=== PATIENT | female | born 1960 | race American Indian/Alaskan Native ===

== ENCOUNTER 2016-11-25 09:36 | Outpatient (CLI) | payer OTHER ==
--- NOTE | 2016-11-25 12:48 | Mammography Report ---
BILATERAL DIGITAL SCREENING MAMMOGRAM with CAD: 11/25/16 09:36:00 CLINICAL: Routine screening. COMPARISON: 11/17/15 FINDINGS: The breasts are predominantly fatty with a few scattered bilateral fibroglandular densities.No mass, architectural distortion or suspicious calcifications. IMPRESSION: No mammographic evidence of malignancy. BI-RADS CATEGORY: 1 -- Negative RECOMMENDATION: Routine mammographic screening in one year. COMMENT: Patient follow-up letters are generated by our [employer] application.
== END 2016-11-25 09:37 | disposition home or self-care (01) ==
LOC: MAMMO 09:36
PROVIDERS: ATTEND Family Medicine
DX: Z12.31 Encounter for screening mammogram for malignant neoplasm of breast (principal)
CPT/HCPCS: 77067; G0202